=== PATIENT | male | born 1960 | race Caucasian/White ===

== ENCOUNTER → 2016-06-12 | Outpatient (CLI) | payer BC ==
[~2016-06-12] MED LIST: ATENOLOL100 MG PO; DIVALPROEX SOD500 M2 PO; FIORINAL W/CODE1 CA2 PO; KETOROLAC TROME10 MG PO; LEVOFLOXACIN500 M1 PO; MAGNESIUM400 MG PO; NEURONTIN300 MG/CAP PO; OXYCODONE HCL E10 MG PO; PREDNISONE10 MG PO; PROCHLORPERAZIN10 M2; SERTRALINE HYD100 MG PO; TOPIRAMATE100 MG PO
== END ==
LOC: LAB 11:20
DX: R30.0 Dysuria (principal)

== ENCOUNTER → 2016-10-07 | Outpatient (CLI) | payer BC ==
[2015-11-07 12:10] VITALS: BP 138/88
== END ==
LOC: LAB 08:49
DX: N39.0 Urinary tract infection, site not specified (principal)

== ENCOUNTER → 2016-10-28 | Day surgery (SDC) | payer BC ==
[2015-11-07 12:10] VITALS: BP 138/88
== END ==
LOC: MSO 10:56
DX: L98.8 Other specified disorders of the skin and subcutaneous tissue (principal)

== ENCOUNTER → 2018-06-25 | Outpatient (CLI) | payer BC ==
[2015-11-07 12:10] VITALS: BP 138/88
[2018-06-25 10:17] LABS: BASO # 0.1 (0.02-0.10); EOS # 0.2 (0.04-0.40); EOS % 2.1 % (0.0-4.0); HEMATOCRIT 48.7 % (42.0-52.0); HEMOGLOBIN 15.7 g/dL (13.5-18.0); LYMPH# 3.1 (1.50-4.00); MEAN CELL VOLUME 89 fl (78-100); MEAN CORPUSCULAR HEMOGLOBIN 29 pg (27-31); MEAN CORPUSCULAR HGB CONC 32 g/dL (33-37); MEAN PLATELET VOLUME 9.6 fl (7.4-10.4); MONO # 0.8 (0.20-0.80); NEU # 5.9 (1.40-6.50); PLATELET COUNT 288 K/mm3 (130-400); RED BLOOD COUNT 5.47 M/mm3 (4.20-5.60); RED CELL DISTRIBUTION WIDTH 14.2 % (11.5-14.5)
[2018-06-25 10:32] LABS: ALBUMIN 4.8 g/dL (3.5-5.0); CALCIUM 9.3 mg/dL (8.4-10.2); TOTAL BILIRUBIN 0.4 mg/dL (0.2-1.3)
[2018-06-25 12:18] LABS: ERYTHROCYTE SEDIMENTATION RATE 7 mm/hr (0-20)
[2018-06-26 00:35] LABS: TESTOSTERONE 246 ng/dL (221-716)
== END ==
LOC: LAB 09:57
PROVIDERS: Internal Medicine
DX: Z00.00 Encounter for general adult medical examination without abnormal findings (principal)

== ENCOUNTER → 2018-07-24 | Outpatient (CLI) | payer BC ==
[2015-11-07 12:10] VITALS: BP 138/88
== END ==
LOC: LAB 15:08
DX: Z00.00 Encounter for general adult medical examination without abnormal findings (principal)

== ENCOUNTER → 2018-10-27 | Outpatient (CLI) | payer BC ==
[2015-11-07 12:10] VITALS: BP 138/88
[2018-10-27 08:29] LABS: BASO # 0.1 (0.02-0.10); EOS # 0.2 (0.04-0.40); EOS % 2.3 % (0.0-4.0); HEMATOCRIT 46.8 % (42.0-52.0); HEMOGLOBIN 14.7 g/dL (13.5-18.0); LYMPH# 2.4 (1.50-4.00); MEAN CELL VOLUME 90 fl (78-100); MEAN CORPUSCULAR HEMOGLOBIN 28 pg (27-31); MEAN CORPUSCULAR HGB CONC 31 g/dL (33-37); MONO # 0.7 (0.20-0.80); NEU # 5.5 (1.40-6.50); PLATELET COUNT 269 K/mm3 (130-400); RED BLOOD COUNT 5.19 M/mm3 (4.20-5.60); WHITE BLOOD COUNT 8.9 K/mm3 (4.8-10.8)
[2018-10-27 08:48] LABS: ALBUMIN 4.1 g/dL (3.5-5.0); CALCIUM 9.5 mg/dL (8.3-10.5); TOTAL BILIRUBIN 0.3 mg/dL (0.2-1.2); TOTAL PROTEIN 7.1 g/dL (6.4-8.3)
== END ==
LOC: LAB 08:04
PROVIDERS: Internal Medicine
DX: Z00.00 Encounter for general adult medical examination without abnormal findings (principal); J00 Acute nasopharyngitis [common cold]; R73.02 Impaired glucose tolerance (oral); G43.909 Migraine, unspecified, not intractable, without status migrainosus

== ENCOUNTER → 2018-11-03 | Outpatient (CLI) | payer BC ==
[2015-11-07 12:10] VITALS: BP 138/88
[2018-11-03 17:11] LABS: PH-URINE 7.5 (5.0 - 8.0); URINE APPEARANCE HAZY; URINE BILIRUBIN NEGATIVE (NEGATIVE); URINE BLOOD 250 ery/uL (NEGATIVE); URINE COLOR YELLOW; URINE GLUCOSE NEGATIVE (NEGATIVE); URINE KETONE NEGATIVE (NEGATIVE); URINE LEUKOCYTE ESTERASE 2+ (NEGATIVE); URINE NITRATE NEGATIVE (NEGATIVE); URINE PROTEIN(semi-quant) 1+ mg/dL (NEGATIVE); URINE UROBILINOGEN NORMAL (NORMAL); URINE WBC >50 /hpf (0-3)
== END ==
LOC: LAB 16:31
PROVIDERS: Urology
DX: R39.11 Hesitancy of micturition (principal); R30.0 Dysuria

== ENCOUNTER → 2019-02-02 | Outpatient (CLI) | payer BC ==
[2015-11-07 12:10] VITALS: BP 138/88
[2019-02-02 08:45] LABS: ALBUMIN 4.3 g/dL (3.5-5.0); POTASSIUM 4.3 mmol/L (3.5-5.1)
[2019-02-02 08:47] LABS: CALCIUM 9.5 mg/dL (8.3-10.5)
[2019-02-02 08:48] LABS: TOTAL PROTEIN 7.7 g/dL (6.4-8.3)
[2019-02-02 08:50] LABS: TOTAL BILIRUBIN 0.3 mg/dL (0.2-1.2)
== END ==
LOC: LAB 08:09
PROVIDERS: Internal Medicine
DX: I10 Essential (primary) hypertension (principal); R73.02 Impaired glucose tolerance (oral)

== ENCOUNTER → 2020-02-01 | Outpatient (CLI) | payer BC ==
[2015-11-07 12:10] VITALS: BP 138/88
[2020-02-01 17:32] LABS: BASO # 0.1 (0.02-0.10); EOS # 0.3 (0.04-0.40); EOS % 3.9 % (0.0-4.0); HEMATOCRIT 44.1 % (42.0-52.0); HEMOGLOBIN 14.1 g/dL (13.5-18.0); LYMPH# 2.2 (1.50-4.00); MEAN CELL VOLUME 91 fl (78-100); MEAN CORPUSCULAR HEMOGLOBIN 29 pg (27-31); MEAN CORPUSCULAR HGB CONC 32 g/dL (33-37); MEAN PLATELET VOLUME 9.6 fl (7.4-10.4); MONO # 0.6 (0.20-0.80); NEU # 3.8 (1.40-6.50); PLATELET COUNT 288 K/mm3 (130-400); RED BLOOD COUNT 4.87 M/mm3 (4.20-5.60); RED CELL DISTRIBUTION WIDTH 14.8 % (11.5-14.5); WHITE BLOOD COUNT 6.9 K/mm3 (4.8-10.8)
[2020-02-01 17:38] LABS: ALBUMIN 4.4 g/dL (3.5-5.0)
[2020-02-01 17:39] LABS: CALCIUM 9.1 mg/dL (8.3-10.5)
[2020-02-01 17:40] LABS: TOTAL PROTEIN 7.4 g/dL (6.4-8.3)
[2020-02-01 17:42] LABS: TOTAL BILIRUBIN 0.2 mg/dL (0.2-1.2)
[2020-02-01 17:47] LABS: MAGNESIUM 2.26 mg/dL (1.60-2.60)
[2020-02-01 18:28] LABS: ERYTHROCYTE SEDIMENTATION RATE 12 mm/hr (0-20)
[2020-02-02 17:47] LABS: TESTOSTERONE 151 ng/dL (221-716)
== END ==
LOC: LAB 17:08
PROVIDERS: Internal Medicine
DX: Z00.00 Encounter for general adult medical examination without abnormal findings (principal); Z12.5 Encounter for screening for malignant neoplasm of prostate; E29.1 Testicular hypofunction

== ENCOUNTER → 2020-08-24 | Outpatient (CLI) | payer BC ==
[2020-08-24 19:02] VITALS: BP 154/93
[2020-08-24 20:25] VITALS: BP 163/95
== END ==
LOC: AMSURD 17:35
DX: G43.711 Chronic migraine without aura, intractable, with status migrainosus (principal)
CPT/HCPCS: J0780; J1110; J7120

== ENCOUNTER → 2021-04-05 | Day surgery (SDC) | payer BC | END | disposition home or self-care (01) | LOC: MSO 07:39 | DX: Z12.11 Encounter for screening for malignant neoplasm of colon (principal); G89.29 Other chronic pain; G47.33 Obstructive sleep apnea (adult) (pediatric); G43.909 Migraine, unspecified, not intractable, without status migrainosus; I10 Essential (primary) hypertension; Z79.899 Other long term (current) drug therapy | CPT/HCPCS: 00812; J2704; J3010; J7120 ==

== ENCOUNTER → 2021-05-09 | Outpatient (CLI) | payer BC ==
[2021-05-09 08:43] LABS: BASO # 0.06 K/mm3 (0.02-0.10); EOS # 0.29 K/mm3 (0.04-0.40); HEMATOCRIT 50.2 % (42.0-52.0); HEMOGLOBIN 15.5 g/dL (13.5-18.0); LYMPH# 2.21 K/mm3 (1.50-4.00); MEAN CELL VOLUME 93 fl (78-100); MEAN CORPUSCULAR HEMOGLOBIN 29 pg (27-31); MEAN CORPUSCULAR HGB CONC 31 g/dL (33-37); MEAN PLATELET VOLUME 9.5 fl (7.4-10.4); MONO # 0.55 K/mm3 (0.20-0.80); NEU # 4.06 K/mm3 (1.40-6.50); PLATELET COUNT 249 K/mm3 (130-400); RED BLOOD COUNT 5.41 M/mm3 (4.20-5.60); RED CELL DISTRIBUTION WIDTH 13.8 % (11.5-14.5); WHITE BLOOD COUNT 7.2 K/mm3 (4.8-10.8)
[2021-05-09 08:53] LABS: POTASSIUM 3.8 mmol/L (3.5-5.1)
[2021-05-09 08:54] LABS: ALBUMIN 4.5 g/dL (3.5-5.0)
[2021-05-09 08:55] LABS: CALCIUM 9.6 mg/dL (8.3-10.5)
[2021-05-09 08:58] LABS: TOTAL BILIRUBIN 0.3 mg/dL (0.2-1.2)
[2021-05-09 09:03] LABS: MAGNESIUM 2.27 mg/dL (1.60-2.60)
[2021-05-09 09:43] LABS: ERYTHROCYTE SEDIMENTATION RATE 18 mm/hr (0-20)
[2021-05-09 23:27] LABS: TESTOSTERONE 234 ng/dL (221-716)
== END ==
LOC: LAB 08:19
PROVIDERS: Internal Medicine
DX: Z00.00 Encounter for general adult medical examination without abnormal findings (principal); Z12.5 Encounter for screening for malignant neoplasm of prostate; Z12.11 Encounter for screening for malignant neoplasm of colon

== ENCOUNTER → 2021-12-06 | Outpatient (CLI) | payer BC ==
[2021-12-06 10:03] LABS: BASO # 0.07 K/mm3 (0.02-0.10); EOS # 0.19 K/mm3 (0.04-0.40); EOS % 2.6 % (0.0-4.0); HEMATOCRIT 46.4 % (42.0-52.0); HEMOGLOBIN 14.4 g/dL (13.5-18.0); MEAN CELL VOLUME 92 fl (78-100); MEAN CORPUSCULAR HEMOGLOBIN 29 pg (27-31); MEAN CORPUSCULAR HGB CONC 31 g/dL (33-37); MEAN PLATELET VOLUME 9.2 fl (7.4-10.4); MONO # 0.59 K/mm3 (0.20-0.80); NEU # 4.54 K/mm3 (1.40-6.50); PLATELET COUNT 288 K/mm3 (130-400); RED BLOOD COUNT 5.06 M/mm3 (4.20-5.60); RED CELL DISTRIBUTION WIDTH 13.8 % (11.5-14.5); WHITE BLOOD COUNT 7.4 K/mm3 (4.8-10.8)
[2021-12-06 10:15] LABS: ALBUMIN 4.4 g/dL (3.4-4.8); POTASSIUM 4.1 mmol/L (3.5-5.1)
[2021-12-06 10:16] LABS: CALCIUM 9.4 mg/dL (8.3-10.5)
[2021-12-06 10:17] LABS: TOTAL PROTEIN 7.6 g/dL (6.2-8.1)
[2021-12-06 10:19] LABS: TOTAL BILIRUBIN 0.3 mg/dL (0.2-1.2)
[2021-12-06 10:24] LABS: MAGNESIUM 2.22 mg/dL (1.60-2.60)
[2021-12-06 12:16] LABS: URINE APPEARANCE CLEAR; URINE BILIRUBIN 1+ (NEGATIVE); URINE BLOOD NEGATIVE (NEGATIVE); URINE COLOR YELLOW; URINE GLUCOSE NEGATIVE (NEGATIVE); URINE KETONE NEGATIVE (NEGATIVE); URINE MUCUS PRESENT (NOT PRESENT); URINE NITRATE NEGATIVE (NEGATIVE); URINE PROTEIN(semi-quant) TRACE (NEGATIVE); URINE UROBILINOGEN NORMAL (NORMAL); URINE WBC 0-1 /hpf (0-3)
[2021-12-06 12:37] LABS: URINE LEUKOCYTE ESTERASE NEGATIVE (NEGATIVE)
== END ==
LOC: LAB 09:37
PROVIDERS: Internal Medicine
DX: D09.0 Carcinoma in situ of bladder (principal); I10 Essential (primary) hypertension; E78.5 Hyperlipidemia, unspecified; G43.109 Migraine with aura, not intractable, without status migrainosus; E53.8 Deficiency of other specified B group vitamins; K90.9 Intestinal malabsorption, unspecified; G47.33 Obstructive sleep apnea (adult) (pediatric); R06.00 Dyspnea, unspecified; R73.03 Prediabetes

== ENCOUNTER → 2021-12-12 | Outpatient (CLI) | payer BC | LOC: RAD 08:00 → VAS 08:00 → RAD 08:30 | DX: R06.00 Dyspnea, unspecified (principal) ==

== ENCOUNTER → 2023-02-28 | Outpatient (CLI) | payer BC ==
[~2023-02-28] MED LIST changes: +AMITRIPTYLINE H50 M1 PO; +BACLOFEN10 M1 PO; +BISOPROLOL FUMAR5 GM PO; +CLARINEX-D12 HO1 T12 PO; +CRESTOR20 MG PO; +FLOMAX0.4 MG PO; +NURTEC ODT75 MG PO; +OLANZAPINE5 M3 PO; +PERCOCET 325 MG1 TA5 PO; +ROBAXIN 75750 MG/TA1 PO; +ROPINIROLE HY0.25 MG PO; +VALSARTAN80 MG PO; +WELLBUTRIN XL300 M1 PO
[2023-02-28 11:57] LABS: BASO # 0.05 K/mm3 (0.02-0.10); EOS # 0.28 K/mm3 (0.04-0.40); HEMATOCRIT 49.3 % (42.0-52.0); HEMOGLOBIN 15.3 g/dL (13.5-18.0); LYMPH# 1.72 K/mm3 (1.50-4.00); MEAN CELL VOLUME 91 fl (78-100); MEAN CORPUSCULAR HEMOGLOBIN 28 pg (27-31); MEAN CORPUSCULAR HGB CONC 31 g/dL (33-37); MEAN PLATELET VOLUME 9.8 fl (7.4-10.4); MONO # 0.41 K/mm3 (0.20-0.80); NEU # 6.81 K/mm3 (1.40-6.50); PLATELET COUNT 255 K/mm3 (130-400); RED BLOOD COUNT 5.42 M/mm3 (4.20-5.60); RED CELL DISTRIBUTION WIDTH 13.3 % (11.5-14.5); WHITE BLOOD COUNT 9.3 K/mm3 (4.8-10.8)
[2023-02-28 14:59] LABS: ALBUMIN 4.7 g/dL (3.4-4.8); POTASSIUM 4.1 mmol/L (3.5-5.1)
[2023-02-28 15:00] LABS: CALCIUM 9.4 mg/dL (8.3-10.5)
[2023-02-28 15:02] LABS: TOTAL PROTEIN 7.5 g/dL (6.2-8.1)
[2023-02-28 15:04] LABS: TOTAL BILIRUBIN 0.3 mg/dL (0.2-1.2)
[2023-02-28 15:08] LABS: MAGNESIUM 2.36 mg/dL (1.60-2.60)
== END ==
LOC: LAB 11:28
PROVIDERS: Internal Medicine
DX: G43.019 Migraine without aura, intractable, without status migrainosus (principal); I12.9 Hypertensive chronic kidney disease with stage 1 through stage 4 chronic kidney disease, or unspecified chronic kidney disease; N18.30 Chronic kidney disease, stage 3 unspecified; E29.1 Testicular hypofunction; K90.9 Intestinal malabsorption, unspecified; I42.0 Dilated cardiomyopathy; G25.81 Restless legs syndrome; R73.03 Prediabetes

== ENCOUNTER → 2023-03-04 | Outpatient (CLI) | payer BC | LOC: RAD 09:35 | DX: M17.11 Unilateral primary osteoarthritis, right knee (principal) ==

== ENCOUNTER → 2023-11-05 | Outpatient (CLI) | payer BC | LOC: CARDREHAB 08:00 | DX: G47.33 Obstructive sleep apnea (adult) (pediatric) (principal) | CPT/HCPCS: G0399 ==

== ENCOUNTER → 2023-12-05 | Outpatient (CLI) | payer BC ==
[2023-12-05 16:39] LABS: BASO # 0.05 K/mm3 (0.02-0.10); EOS # 0.25 K/mm3 (0.04-0.40); EOS % 2.8 % (0.0-4.0); HEMATOCRIT 44.9 % (42.0-52.0); HEMOGLOBIN 14.1 g/dL (13.5-18.0); LYMPH# 2.43 K/mm3 (1.50-4.00); MEAN CELL VOLUME 90 fl (78-100); MEAN CORPUSCULAR HEMOGLOBIN 28 pg (27-31); MEAN CORPUSCULAR HGB CONC 31 g/dL (33-37); MEAN PLATELET VOLUME 9.6 fl (7.4-10.4); MONO # 0.86 K/mm3 (0.20-0.80); NEU # 5.46 K/mm3 (1.40-6.50); PLATELET COUNT 261 K/mm3 (130-400); RED CELL DISTRIBUTION WIDTH 13.4 % (11.5-14.5); WHITE BLOOD COUNT 9.1 K/mm3 (4.8-10.8)
[2023-12-05 16:48] LABS: ALBUMIN 4.6 g/dL (3.4-4.8)
[2023-12-05 16:50] LABS: CALCIUM 9.8 mg/dL (8.3-10.5)
[2023-12-05 16:51] LABS: TOTAL PROTEIN 7.5 g/dL (6.2-8.1)
[2023-12-05 16:52] LABS: PROTHROMBIN TIME 9.4 SECONDS (9.0-12.0)
[2023-12-05 16:53] LABS: TOTAL BILIRUBIN 0.2 mg/dL (0.2-1.2)
[2023-12-05 16:57] LABS: MAGNESIUM 2.37 mg/dL (1.60-2.60)
[2023-12-05 17:10] LABS: PH-URINE 6.5 (5.0 - 8.0); URINE APPEARANCE CLEAR (CLEAR); URINE BILIRUBIN NEGATIVE (NEGATIVE); URINE BLOOD 1+ (NEGATIVE); URINE COLOR YELLOW (YELLOW); URINE GLUCOSE NEGATIVE (NEGATIVE); URINE KETONE NEGATIVE (NEGATIVE); URINE LEUKOCYTE ESTERASE NEGATIVE (NEGATIVE); URINE NITRATE NEGATIVE (NEGATIVE); URINE PROTEIN(semi-quant) NEGATIVE (NEGATIVE); URINE WBC 0-1 /hpf (0-3)
== END ==
LOC: RAD 16:00
PROVIDERS: Internal Medicine
DX: Z01.818 Encounter for other preprocedural examination (principal)

== ENCOUNTER → 2024-01-22 | Outpatient (CLI) | payer BC ==
[2024-01-22 10:10] LABS: BASO # 0.04 K/mm3 (0.02-0.10); EOS # 0.25 K/mm3 (0.04-0.40); HEMATOCRIT 44.2 % (42.0-52.0); MEAN CELL VOLUME 90 fl (78-100); MEAN CORPUSCULAR HEMOGLOBIN 29 pg (27-31); MEAN CORPUSCULAR HGB CONC 32 g/dL (33-37); MEAN PLATELET VOLUME 9.1 fl (7.4-10.4); MONO # 0.71 K/mm3 (0.20-0.80); NEU # 5.07 K/mm3 (1.40-6.50); PLATELET COUNT 276 K/mm3 (130-400); RED BLOOD COUNT 4.92 M/mm3 (4.20-5.60); RED CELL DISTRIBUTION WIDTH 13.7 % (11.5-14.5); WHITE BLOOD COUNT 8.3 K/mm3 (4.8-10.8)
[2024-01-22 10:18] LABS: ALBUMIN 4.3 g/dL (3.4-4.8)
[2024-01-22 10:20] LABS: CALCIUM 9.5 mg/dL (8.3-10.5)
[2024-01-22 10:21] LABS: TOTAL PROTEIN 7.3 g/dL (6.2-8.1)
[2024-01-22 10:23] LABS: TOTAL BILIRUBIN 0.3 mg/dL (0.2-1.2)
[2024-01-22 10:32] LABS: URINE APPEARANCE CLEAR (CLEAR); URINE BILIRUBIN NEGATIVE (NEGATIVE); URINE BLOOD 1+ (NEGATIVE); URINE COLOR YELLOW (YELLOW); URINE GLUCOSE NEGATIVE (NEGATIVE); URINE KETONE NEGATIVE (NEGATIVE); URINE LEUKOCYTE ESTERASE NEGATIVE (NEGATIVE); URINE MUCUS PRESENT (NOT PRESENT); URINE NITRATE NEGATIVE (NEGATIVE); URINE PROTEIN(semi-quant) NEGATIVE (NEGATIVE)
== END ==
LOC: LAB 09:58
PROVIDERS: Internal Medicine
DX: R10.32 Left lower quadrant pain (principal)

== ENCOUNTER → 2024-02-20 | Outpatient (CLI) | payer BC ==
[2024-02-20 10:41] LABS: CALCIUM 9.6 mg/dL (8.3-10.5)
== END ==
LOC: LAB 10:00
DX: I25.10 Atherosclerotic heart disease of native coronary artery without angina pectoris (principal); I10 Essential (primary) hypertension

== ENCOUNTER 2024-02-27 08:59 | Outpatient (RCR) | payer BC | END 2024-03-18 | disposition home or self-care (01) | LOC: PT | DX: Z96.651 Presence of right artificial knee joint (principal) ==

== ENCOUNTER → 2024-04-02 | Outpatient (CLI) | payer BC ==
[~2024-04-02] MED LIST changes: +ENTRESTO 49 MG1 EACH PO; +VAZALORE81 MG PO
[2024-04-02 16:40] LABS: BASO # 0.04 K/mm3 (0.02-0.10); EOS # 0.16 K/mm3 (0.04-0.40); EOS % 1.5 % (0.0-4.0); HEMATOCRIT 43.3 % (42.0-52.0); HEMOGLOBIN 13.6 g/dL (13.5-18.0); LYMPH# 2.36 K/mm3 (1.50-4.00); MEAN CELL VOLUME 92 fl (78-100); MEAN CORPUSCULAR HEMOGLOBIN 29 pg (27-31); MEAN CORPUSCULAR HGB CONC 31 g/dL (33-37); MEAN PLATELET VOLUME 9.4 fl (7.4-10.4); MONO # 0.96 K/mm3 (0.20-0.80); NEU # 7.05 K/mm3 (1.40-6.50); PLATELET COUNT 308 K/mm3 (130-400); RED BLOOD COUNT 4.72 M/mm3 (4.20-5.60); RED CELL DISTRIBUTION WIDTH 13.4 % (11.5-14.5); WHITE BLOOD COUNT 10.6 K/mm3 (4.8-10.8)
[2024-04-02 16:52] LABS: ALBUMIN 4.6 g/dL (3.4-4.8)
[2024-04-02 16:53] LABS: CALCIUM 9.8 mg/dL (8.3-10.5); PH-URINE 5.5 (5.0 - 8.0); URINE APPEARANCE CLEAR (CLEAR); URINE BILIRUBIN NEGATIVE (NEGATIVE); URINE COLOR YELLOW (YELLOW); URINE KETONE NEGATIVE (NEGATIVE); URINE PROTEIN(semi-quant) NEGATIVE (NEGATIVE)
[2024-04-02 16:54] LABS: TOTAL PROTEIN 7.9 g/dL (6.2-8.1); URINE BLOOD 3+ (NEGATIVE); URINE GLUCOSE TRACE (NEGATIVE); URINE LEUKOCYTE ESTERASE NEGATIVE (NEGATIVE); URINE MUCUS PRESENT (NOT PRESENT); URINE NITRATE NEGATIVE (NEGATIVE)
[2024-04-02 16:56] LABS: TOTAL BILIRUBIN 0.3 mg/dL (0.2-1.2)
[2024-04-02 17:01] LABS: MAGNESIUM 2.39 mg/dL (1.60-2.60)
== END ==
LOC: LAB 16:17
PROVIDERS: Internal Medicine
DX: Z12.5 Encounter for screening for malignant neoplasm of prostate (principal); N39.0 Urinary tract infection, site not specified; I10 Essential (primary) hypertension; K90.9 Intestinal malabsorption, unspecified; R73.03 Prediabetes

== ENCOUNTER 2024-04-08 14:55 | Emergency (ER) | payer BC ==
[~2024-04-08] VITALS: Ht 193 cm; Wt 168.2 kg
[~2024-04-08 14:55] MED LIST changes: -ENTRESTO 49 MG1 EACH PO; -VAZALORE81 MG PO
[2024-04-08] MEDS ORDERED: ENTRESTO 49 MG1 EACH PO (15:09)
[2024-04-08] MEDS ORDERED: VAZALORE81 MG PO (15:10)
[2024-04-08 15:37] LABS: BASO # 0.03 K/mm3 (0.02-0.10); EOS # 0.12 K/mm3 (0.04-0.40); EOS % 1.5 % (0.0-4.0); HEMATOCRIT 42.3 % (42.0-52.0); HEMOGLOBIN 13.3 g/dL (13.5-18.0); MEAN CELL VOLUME 91 fl (78-100); MEAN CORPUSCULAR HEMOGLOBIN 29 pg (27-31); MEAN CORPUSCULAR HGB CONC 31 g/dL (33-37); MEAN PLATELET VOLUME 9.8 fl (7.4-10.4); MONO # 0.54 K/mm3 (0.20-0.80); NEU # 5.92 K/mm3 (1.40-6.50); PLATELET COUNT 300 K/mm3 (130-400); RED BLOOD COUNT 4.64 M/mm3 (4.20-5.60); RED CELL DISTRIBUTION WIDTH 13.8 % (11.5-14.5); WHITE BLOOD COUNT 8.1 K/mm3 (4.8-10.8)
[2024-04-08 15:45] LABS: ALBUMIN 4.4 g/dL (3.4-4.8)
[2024-04-08 15:47] LABS: CALCIUM 9.9 mg/dL (8.3-10.5)
[2024-04-08 15:48] LABS: TOTAL PROTEIN 7.3 g/dL (6.2-8.1)
[2024-04-08 15:50] LABS: TOTAL BILIRUBIN 0.4 mg/dL (0.2-1.2)
[2024-04-08] MEDS ORDERED: NS 500 ML IV SCH (16:15)
[2024-04-08 18:12] VITALS: BP 116/72
== END 2024-04-08 18:25 | disposition home or self-care (01) ==
LOC: ED 14:55
PROVIDERS: Nurse Practitioner
DX: I95.1 Orthostatic hypotension (principal); N39.0 Urinary tract infection, site not specified; I42.8 Other cardiomyopathies; I12.9 Hypertensive chronic kidney disease with stage 1 through stage 4 chronic kidney disease, or unspecified chronic kidney disease; E11.22 Type 2 diabetes mellitus with diabetic chronic kidney disease; N18.9 Chronic kidney disease, unspecified; N17.9 Acute kidney failure, unspecified; E66.01 Morbid (severe) obesity due to excess calories; Z79.82 Long term (current) use of aspirin; Z85.51 Personal history of malignant neoplasm of bladder
CPT/HCPCS: J7040

== ENCOUNTER → 2024-07-02 | Outpatient (CLI) | payer BC ==
[~2024-07-02] MED LIST changes: +ENTRESTO 49 MG1 EACH PO; +VAZALORE81 MG PO
[2024-07-02 17:22] LABS: BASO # 0.04 K/mm3 (0.02-0.10); EOS # 0.25 K/mm3 (0.04-0.40); EOS % 2.9 % (0.0-4.0); HEMATOCRIT 43.4 % (42.0-52.0); HEMOGLOBIN 13.1 g/dL (13.5-18.0); MEAN CELL VOLUME 94 fl (78-100); MEAN CORPUSCULAR HEMOGLOBIN 28 pg (27-31); MEAN CORPUSCULAR HGB CONC 30 g/dL (33-37); MEAN PLATELET VOLUME 9.3 fl (7.4-10.4); NEU # 5.01 K/mm3 (1.40-6.50); PLATELET COUNT 256 K/mm3 (130-400); RED BLOOD COUNT 4.61 M/mm3 (4.20-5.60); RED CELL DISTRIBUTION WIDTH 13.7 % (11.5-14.5); WHITE BLOOD COUNT 8.5 K/mm3 (4.8-10.8)
[2024-07-02 17:27] LABS: ALBUMIN 4.2 g/dL (3.4-4.8)
[2024-07-02 17:28] LABS: CALCIUM 9.5 mg/dL (8.3-10.5)
[2024-07-02 17:30] LABS: TOTAL PROTEIN 7.5 g/dL (6.2-8.1)
[2024-07-02 17:31] LABS: TOTAL BILIRUBIN 0.2 mg/dL (0.2-1.2)
[2024-07-02 17:36] LABS: MAGNESIUM 2.12 mg/dL (1.60-2.60)
== END ==
LOC: LAB 16:49
PROVIDERS: Internal Medicine
DX: I10 Essential (primary) hypertension (principal); R73.03 Prediabetes